=== PATIENT | male | born 1950 | race Caucasian/White ===

== ENCOUNTER → 2016-12-09 | Outpatient (CLI) | payer OTHER ==
[2016-06-23 10:49] VITALS: BP 182/92
--- NOTE | 2016-12-09 16:11 | MRI ---
MRI right shoulder without contrast Indication: Right shoulder pain Comparison: None Technique: Multiplanar multisequence MR images of the right shoulder were obtained without contrast. Findings: There is diffuse intermediate in signal of the distal supraspinatus and infraspinatus tend ons with articular sided fraying, although no high-grade tear or tendon retraction is identified. Th e subscapularis and teres minor are intact. There is mild thickening of the intra-articular long hea d biceps tendon. There are mild degenerative changes of the AC joint, without significant encroachment on the underly ing rotator cuff. A small amount of fluid is present within the subacromial/subdeltoid bursa. There is mild diffuse glenohumeral chondrosis, without full-thickness chondral defect. There is a tear of the superior labrum, likely degenerative. No large paralabral cyst identified. The remainder of the labrum is otherwise grossly intact. No significant joint effusion or muscle atrophy appreciated. Impression: 1. Moderate supraspinatus and infraspinatus tendinosis with bursal sided fraying. No full-thickness tear or tendon retraction identified. 2. 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 3. Superior labral tear, likely degenerative. 4. Mild intra-articular biceps tendinosis Reported By:
== END ==
LOC: RAD 09:12
PROVIDERS: ATTEND Specialist
DX: M19.011 Primary osteoarthritis, right shoulder (principal)
CPT/HCPCS: 73221

== ENCOUNTER → 2017-01-07 | Outpatient (CLI) | payer OTHER ==
[2016-06-23 10:49] VITALS: BP 182/92
[2017-01-07 12:00] LABS: BILIRUBIN,URINE NEGATIVE (NEGATIVE); BLOOD/HEMOGLOBIN,URINE NEGATIVE (NEGATIVE); GLUCOSE, URINE 4+ (NEGATIVE); KETONES,URINE NEGATIVE (NEGATIVE); LEUKOCYTE ESTERASE ,URINE NEGATIVE (NEGATIVE); NITRITES,URINE NEGATIVE (NEGATIVE); PH,URINE 6.5 (5.0 - 8.0); PROTEIN,URINE 1+ (NEGATIVE); UROBILINOGEN,URINE NORMAL (NORMAL)
[2017-01-07 12:01] LABS: BASOPHILS # (AUTO) 0.1 X10^3/uL (0.0-0.1); BASOPHILS % (AUTO) 1.1 % (0.2-1.0); EOSINOPHILS # (AUTO) 0.1 x10^3/uL (0.0-0.2); EOSINOPHILS % (AUTO) 1.2 % (0.9-2.9); HEMATOCRIT 47.1 % (42.0-54.0); HEMOGLOBIN 16.5 g/dL (13.5-18.0); LYMPHOCYTES # (AUTO) 2.4 X10^3/uL (1.3-2.9); LYMPHOCYTES % (AUTO) 36.7 % (21.0-51.0); MEAN CORPUSCULAR HGB CONC 35.1 g/dL (33.0-35.0); MEAN CORPUSCULAR VOLUME 91.1 fL (80.0-100.0); MONOCYTES # (AUTO) 0.4 x10^3/uL (0.3-0.8); MONOCYTES % (AUTO) 6.7 % (0.0-13.0); NEUTROPHILS # (AUTO) 3.6 x10^3/uL (2.2-4.8); NEUTROPHILS % (AUTO) 54.3 % (42.0-75.0); PLATELET COUNT 165 X10^3/uL (150.0-450.0); RED BLOOD COUNT 5.17 X10^6/uL (4.7-6.0); RED CELL DISTRIBUTION WIDTH 13.1 % (11.6-16.5); WHITE BLOOD COUNT 6.6 X10^3/uL (3.6-10.0)
[2017-01-07 12:07] LABS: APPEARANCE,URINE CLEAR (CLEAR); BACTERIA,URINE NEGATIVE /HPF (NEGATIVE); COLOR,URINE YELLOW (YELLOW); RBC,URINE 0-2 /HPF (NEGATIVE); SQUAMOUS EPITHELIAL CELL,UR NEGATIVE /HPF (NEGATIVE)
[2017-01-07 12:11] LABS: ALBUMIN 3.9 g/dL (3.4-5.0); ALKALINE PHOSPHATASE 169 Units/L (46-116); ASPARTATE AMINO TRANSFERASE 36 Units/L (15-37); BLOOD UREA NITROGEN 16 mg/dL (7-18); CALCIUM 8.8 mg/dL (8.5-10.1); CARBON DIOXIDE 26.4 mmol/L (21-32); CHLORIDE 100 mmol/L (98-107); COR NA(FOR HYPERGLY) 143 mmol/L (136-145); CREATININE 1.16 mg/dL (0.70-1.30); GLUCOSE 343 mg/dL (65-99); SODIUM 137 mmol/L (136-145); TOTAL PROTEIN 7.7 g/dL (6.4-8.2); eGFR BLACK RACES > 60 (>60); eGFR NON BLACK RACES > 60 (>60)
[2017-01-07 12:21] LABS: ALANINE AMINOTRANSFERASE 33 Units/L (12-78)
--- NOTE | 2017-01-07 12:46 | RAD ---
HISTORY: Preop shoulder surgery Study: Chest two-view Comparison: June 22, 2016 Findings: The trachea is midline. The cardiac silhouette is unremarkable. The lungs are clear without focal infiltrate or effusion. The bony thorax is unremarkable. IMPRESSION: 1. No acute cardiopulmonary disease. Reported By:
== END ==
LOC: LAB 11:08
PROVIDERS: ATTEND Specialist
DX: Z01.818 Encounter for other preprocedural examination (principal); Z01.810 Encounter for preprocedural cardiovascular examination; Z01.811 Encounter for preprocedural respiratory examination; Z79.899 Other long term (current) drug therapy; Z11.8 Encounter for screening for other infectious and parasitic diseases; M19.011 Primary osteoarthritis, right shoulder
CPT/HCPCS: 36415; 71020; 80053; 81001; 85025; 87641; 93005; 93010

== ENCOUNTER 2017-01-13 07:09 | Day surgery (SDC) | payer OTHER ==
[2017-01-13] MEDS ORDERED: D5 LR 1000 ML 1,000 ML IV ONE (07:21)
[2017-01-13] MEDS ORDERED: MARCAINE 0.25% WITH EPI IJ ONE (07:52)
[2017-01-13] MEDS ORDERED: MARCAINE 0.25% INJ ONE (07:52)
[2017-01-13] MEDS ORDERED: NS 1000 ML 1,000 ML ONE (08:02)
[2017-01-13] MEDS: ANCEF VIAL 1 GM ONE ×2 (08:11→08:33)
[2017-01-13] MEDS ORDERED: NS IRRIGATION 1000 ML 1,000 ML with BACITRACIN VIAL 50,000 UNT IR ONE ×4 (08:12)
[2017-01-13] MEDS: NS 50 ML IV + SPIKE MINIBAG* 50 ML IV ONE ×2 (08:12→08:33)
[2017-01-13] MEDS ORDERED: HumuLIN R ONE ×2 (08:20→08:26)
[2017-01-13] MEDS ORDERED: FENTANYL INJ 250 mcg ONE (08:48)
[2017-01-13] MEDS ORDERED: BENADRYL INJ 50 MG VIAL IVP PRN (09:57)
[2017-01-13] MEDS ORDERED: ZOFRAN INJ 4 MG VIAL IVP PRN (09:57)
[2017-01-13] MEDS ORDERED: PHENERGAN INJ 25 MG IVP PRN (09:57)
[2017-01-13] MEDS ORDERED: DILAUDID INJ IVP PRN (09:57)
[2017-01-13] MEDS ORDERED: REGLAN INJ 10 MG VIAL IVP PRN (09:57)
[2017-01-13] MEDS ORDERED: NORCO 5/325 MG TAB ONE (10:58)
[2017-01-13 11:02] VITALS: BP 166/78
[2017-01-13] MEDS ORDERED: NEOSTIGMINE INJ ONE (15:49)
[2017-01-13] MEDS ORDERED: ZOFRAN INJ 4 MG VIAL ONE (15:49)
[2017-01-13] MEDS ORDERED: ULTANE GAS IN ONE (15:49)
[2017-01-13] MEDS ORDERED: DIPRIVAN VIAL ONE (15:49)
[2017-01-13] MEDS ORDERED: XYLOCAINE 2 % (PLAIN) ONE (15:49)
[2017-01-13] MEDS ORDERED: REGLAN INJ 10 MG VIAL ONE (15:49)
[2017-01-13] MEDS ORDERED: VERSED ONE (15:49)
[2017-01-13] MEDS ORDERED: QUELICIN (OR ANECTINE) ONE (15:49)
[2017-01-13] MEDS ORDERED: ROBINUL ONE (15:49)
[2017-01-13] MEDS ORDERED: NORCURON INJ 10 MG VIAL ONE (15:49)
== END 2017-01-13 11:30 | disposition home or self-care (01) | DRG 512 ==
LOC: SURG1 07:09
PROVIDERS: ATTEND Specialist
PROC: 0RNJ0ZZ Release Right Shoulder Joint, Open Approach (ICD-10-PCS; principal; 2017-01-13 08:30)
PROC: 0PB90ZZ Excision of Right Clavicle, Open Approach (ICD-10-PCS; principal; 2017-01-13 08:30)
DX: M19.011 Primary osteoarthritis, right shoulder (principal); M75.81 Other shoulder lesions, right shoulder
CPT/HCPCS: A4216; A4222; S0020; J0330; J0690; J1815; J2001; J2250; J2405; J2710; J2765; J3010; J3490; J7120